=== PATIENT | female | born 1970 | race Caucasian/White ===

== ENCOUNTER → 2016-07-13 | Outpatient (CLI) | payer OTHER ==
[~2016-07-13] MED LIST: FLEXERIL PO; MEDROL PO; PERCOCET5/325 PO
--- NOTE | ~2016-07-13 | MY11 ---
[facility] A Service [facility] RADIOLOGY TEXT RESULTS PATIENT: JAVAN NAYLOR LOCATION: [facility] : 68 UNIT #: [id number] AGE: [address]: Gisella Simpson MD SEX: F ORDER DR: [id number] [address] [address] [id number] O MR#: [id number] Acc #: [id number] NAME: JAVAN NAYLOR : 1970 SEX: F STUDY DATE/TIME: 07/13/2016 14:26 UNIT: [facility] ROOM: STUDY DESCRIPTION: MY Mammogram Screening Dig Mark Attending Physician: Gisella Simpson M.D. Referring Physician: Gisella Simpson M.D. Ordering Physician: Gisella Simpson M.D. Primary Care Physician: Gisella Simpson M.D. MEDICAL IMAGING REPORT This report is preliminary unless electronic signature is present. EXAM Bilateral digital screening mammogram with CAD, 07/13/2016 INDICATION Routine screening. No current complaints. No family history of breast cancer. COMPARISON 07/08/2015; 10/02/2011; 08/29/2010 FINDINGS MLO and CC digital views of each breast were obtained. The exam was reviewed with an FDA-approved CAD. Breasts are heterogenously dense. There are no masses or abnormal calcifications. IMPRESSION No change and no evidence of malignancy. Patients over the age of 40 are entered into a reminder system with target due date for the next mammogram. A result letter will also be sent to the patient. BIRADS: 1 Negative. Dictated by... Juan Ramon Elmore M.D. THIS IS AN ELECTRONICALLY VERIFIED REPORT Juan Ramon Elmore M.D. at 07/14/2016 7:13 AM JASSON/viola [facility] A Service [facility] RADIOLOGY TEXT RESULTS PATIENT: JAVAN NAYLOR LOCATION: [facility] : 68 UNIT #: [id number] AGE: [address]: Gisella Simpson MD SEX: F ORDER DR: TD: 07/14/2016 05:06 JOB #: [id number] MEDICAL IMAGING REPORT
== END | disposition home or self-care (01) ==
LOC: SMAM 13:47
DX: Z12.31 Encounter for screening mammogram for malignant neoplasm of breast (principal)
CPT/HCPCS: G0202

== ENCOUNTER → 2016-12-23 | Outpatient (CLI) | payer OTHER ==
--- NOTE | ~2016-12-23 | US128 ---
[id number] [address] [address] [id number] O MR#: [id number] Acc #: [id number] NAME: JAVAN NAYLOR : 1970 SEX: F STUDY DATE/TIME: 12/23/2016 15:01 UNIT: [facility] ROOM: STUDY DESCRIPTION: Thyroid Attending Physician: Chelsey Lopez A.P.R.N. Referring Physician: Chelsey Lopez A.P.R.N. Ordering Physician: Chelsey Lopez A.P.R.N. Primary Care Physician: Gisella Simpson M.D. MEDICAL IMAGING REPORT This report is preliminary unless electronic signature is present. EXAM Thyroid ultrasound, 12/23/2016. HISTORY Enlarged thyroid on physical examination, 12/17/2016, thyroid fullness for 1 week. FINDINGS The right thyroid lobe measured 1.8 cm x 1.3 cm x 3.6 cm while the left thyroid lobe measured 1.8 cm x 1.5 cm x 2.3 cm. The isthmus measured 2 mm in the AP direction. Both thyroid lobes are homogeneous in echotexture and demonstrate no cystic or solid mass lesions. There are no masses extrinsic to the thyroid. Normal blood flow is seen throughout both thyroid lobes. IMPRESSION Negative thyroid ultrasound. Dictated by... Doug Arredondo M.D. THIS IS AN ELECTRONICALLY VERIFIED REPORT Doug Arredondo M.D. at 12/24/2016 7:28 AM JULEE/jolly TD: 12/23/2016 21:26 JOB #: [id number] MEDICAL IMAGING REPORT Page 1 of 1
== END | disposition home or self-care (01) ==
LOC: SGUS 15:12
DX: E07.89 Other specified disorders of thyroid (principal)
CPT/HCPCS: 76536